=== PATIENT | male | born 1975 | race Caucasian/White ===

== ENCOUNTER 2021-06-22 13:43 | Observation (INO) | payer OTHER ==
[~2021-06-22] VITALS: Ht 185.4 cm; Wt 127.0 kg
[2021-06-22 14:41] LABS: HEMOGLOBIN 15.9 gm/dl (14.0-17.5); RED BLOOD COUNT 4.84 M/UL (4.20-5.50); WHITE BLOOD COUNT 9.6 K/UL (4.5-11.0)
[2021-06-22 15:07] LABS: BUN/CREATININE RATIO 16 (0-10)
[2021-06-22] MEDS ORDERED: CIPRO500 MG PO (19:11)
[2021-06-22] MEDS ORDERED: LISINOPRIL20 MG PO (19:12)
[2021-06-23 03:58] LABS: WHITE BLOOD COUNT 10.2 K/UL (4.5-11.0)
[2021-06-23 04:01] LABS: HEMOGLOBIN 13.8 gm/dl (14.0-17.5); RED BLOOD COUNT 4.32 M/UL (4.20-5.50)
[2021-06-23 04:13] LABS: BUN/CREATININE RATIO 15 (0-10)
[2021-06-23] MEDS ORDERED: LEVOTHYROXINE50 MCG PO (19:11)
[2021-06-24 02:53] LABS: HEMOGLOBIN 14.1 gm/dl (14.0-17.5); RED BLOOD COUNT 4.37 M/UL (4.20-5.50)
[2021-06-24 03:01] LABS: WHITE BLOOD COUNT 7.2 K/UL (4.5-11.0)
[2021-06-24 03:04] LABS: BUN/CREATININE RATIO 17 (0-10)
[2021-06-24] MEDS ORDERED: METRONIDAZOLE500 MG PO (10:13)
[2021-06-24] MEDS ORDERED: CIPRO500 MG PO (10:13)
== END 2021-06-24 11:04 | disposition home or self-care (01) ==
LOC: ER1 13:43 → CDU 17:19 → M/S 17:19
PROVIDERS: Emergency Medicine; ADMIT Internal Medicine
DX: K57.32 Diverticulitis of large intestine without perforation or abscess without bleeding (principal); Z20.822 Contact with and (suspected) exposure to COVID-19; I10 Essential (primary) hypertension; E03.9 Hypothyroidism, unspecified
CPT/HCPCS: 36415; 80048; 80053; 81001; 82550; 82553; 83036; 83690; 84439; 84443; 84484; 85025; 87040; 96372; 96374; 96375; 96376; 99285; G0378; J1650; J2270; J2405; J2543; Q9967; U0002